=== PATIENT | female | born 1935 | race Caucasian/White ===

== ENCOUNTER 2017-12-08 07:27 | Outpatient (CLI) | payer MEDICARE ==
--- NOTE | 2017-12-08 09:37 | NM ---
NUCLEAR MEDICINE LIVER SPLEEN SCAN: Date: 12/08/17 HISTORY: Thrombocytopenia, unspecified. RADIOPHARMACEUTICAL: 5.2 mCi technetium-99m sulfur colloid injected intravenously. FINDINGS: The liver and spleen demonstrate homogeneous tracer distribution without focal mass. Faint uptake is seen in the bone marrow. No colloid shift is identified. The liver measures 21.2 cm in length and the spleen measures 13.4 cm in length. IMPRESSION: 1. Hepatomegaly. 2. Borderline splenomegaly. POS: C
== END 2017-12-08 07:28 | disposition home or self-care (01) ==
LOC: NM 07:27
PROVIDERS: ATTEND Internal Medicine
DX: D69.6 Thrombocytopenia, unspecified (principal); R16.0 Hepatomegaly, not elsewhere classified
CPT/HCPCS: 78215; A9541

== ENCOUNTER 2018-09-05 19:31 | Emergency (ER) | payer MEDICARE ==
--- NOTE | 2018-09-05 20:36 | RAD ---
RIGHT LEG TWO VIEWS: 09/05/18 HISTORY: Fall. Right leg pain. FINDINGS/IMPRESSION: Right tibia and fibula are intact. POS: [facility]
[2018-09-05] MEDS ORDERED: Lidocaine 1% w/Epinephrine 1:100K 20 ML VIAL ONE (21:26)
[2018-09-05] MEDS ORDERED: Acetaminophen 500 MG TAB ONE (22:25)
[2018-09-05] MEDS ORDERED: Adacel (T-DAP) 0.5 ML SYRINGE ONE (22:25)
== END 2018-09-05 21:45 | disposition home or self-care (01) ==
LOC: ERS 19:31
DX: S81.801A Unspecified open wound, right lower leg, initial encounter (principal); F41.9 Anxiety disorder, unspecified; I10 Essential (primary) hypertension; E11.9 Type 2 diabetes mellitus without complications; Z79.899 Other long term (current) drug therapy; Z79.82 Long term (current) use of aspirin; W17.89XA Other fall from one level to another, initial encounter
CPT/HCPCS: 12002; 90471; 90715; J2001

== ENCOUNTER 2018-09-21 12:30 | Inpatient (IN) | payer MEDICARE ==
[2018-09-21 13:13] LABS: #Eosinphils 0.1 thou/uL (0.0-0.7); #Lymphocytes 0.7 thou/uL (1.20-3.40); #Monocytes 0.5 thou/uL (0.11-0.59); #Neutrophils 5.3 thou/uL (1.40-6.50); %Basophils 0.6 % (0.0-1.0); %Eosinophils 1.2 % (0.0-10.0); %Lymphocytes 10.6 % (21.0-51.0); %Monocytes 8.1 % (0.0-10.0); %Neutrophils 79.5 % (42.0-75.0); Hemoglobin 10.7 g/dL (12.0-16.0); Mean Corpuscular HGB CONC 31.8 g/dL (32.0-36.0); Mean Corpuscular Hemoglobin 28.9 pg (27.0-31.0); Mean Corpuscular Volume 90.9 fL (78.0-98.0); Mean Platelet Volume 8.4 fL (7.4-10.4); Platelet Count 145 thou/uL (130-400); RBC Distribution Width 13.8 % (11.5-14.5); Red Blood Cell (RBC) Count 3.71 mill/uL (4.20-5.40); White Blood Cell (WBC) Count 6.6 thou/uL (4.8-10.8)
[2018-09-21 13:32] LABS: ALT (SGPT) 69 U/L (8-55); AST (SGOT) 105 U/L (5-34); Albumin 3.8 g/dL (3.4-4.8); Alkaline Phosphatase 86 U/L (40-150); Anion Gap 16 mmol/L (10-20); BUN (Urea Nitrogen) 20 mg/dL (9.8-20.1); Bilirubin, Total 0.5 mg/dL (0.2-1.2); Calc. Creatinine Clearance 0 mL/min (70-130); Calcium 11.1 mg/dL (7.8-10.44); Carbon Dioxide 22 mmol/L (23-31); Chloride 96 mmol/L (98-107); Estimated GFR-MDRD 33; Globulin 3.1 g/dL (2.4-3.5); Glucose 117 mg/dL (83-110); Protein, Total 6.9 g/dL (6.0-8.3); Sodium 130 mmol/L (136-145)
--- NOTE | 2018-09-21 15:33 | ULT ---
RIGHT LOWER EXTREMITY VENOUS DOPPLER WITH SPECTRAL ANALYSIS AND COLOR FLOW EVALUATION: 09/21/18 HISTORY: Right lower extremity edema and pain. Right calf wound. FINDINGS: Garzon scale, color flow, Doppler evaluation, with spectral analysis of the right lower extremity venou s structures is performed with 2D imaging. The right lower extremity common femoral, superficial femo ral, popliteal, posterior tibial, proximal greater saphenous and profunda femoral veins are imaged. There is normal lumen compressibility, flow, and augmentation of the visualized deep venous structure s of the right lower extremity. IMPRESSION: No evidence of a DVT involving the visualized deep venous structures right lower extremity. POS: [facility]
[2018-09-21 17:21] VITALS: BMI 26.4
[2018-09-21] MEDS ORDERED: Acetaminophen 325 MG TAB PO PRN (17:41)
[2018-09-21] MEDS ORDERED: Ondansetron ODT 4 MG TAB SL PRN (17:41)
[2018-09-21] MEDS ORDERED: Ondansetron PF 4 MG/2 ML Vial IVP PRN (17:41)
[2018-09-21 17:55] LABS: Lactic Acid 2.9 mmol/L (0.5-2.2)
[2018-09-21] MEDS ORDERED: Dextrose 5% in Water 1,000 ML IV PRN (17:57)
[2018-09-21] MEDS ORDERED: Dextrose 50% Abboject 50 ML SYRINGE SLOW IVP PRN (17:57)
[2018-09-21] MEDS ORDERED: HumaLOG 300 UNITS/3 ML VIAL SC PRN (17:57)
[2018-09-21] MEDS: Sodium Chloride 0.45% 1,000 ML IV SCH (18:40)
[2018-09-21] MEDS: Zolpidem Tartrate 5 MG TAB PO SCH (20:54)
[2018-09-21] MEDS: Mirtazapine 30 MG TAB PO SCH (20:54)
[2018-09-21] MEDS: Rosuvastatin 10 MG TAB PO SCH (20:54)
[2018-09-21] MEDS: Clindamycin/D5W 900 MG in Premix Bag 1 BAG IVPB SCH (20:54)
[2018-09-21] MEDS: cloNIDine 0.1 MG TAB PO SCH (20:55)
[2018-09-21] MEDS: Acetaminophen/Codeine 30-300mg Tablet PO PRN (21:01)
--- NOTE | 2018-09-21 22:52 | HP ---
CHIEF COMPLAINT: Right leg infection. HISTORY OF PRESENT ILLNESS: This patient is an 82-year-old female who had a fall on 09/05/2018, was seen here in the emergency department. The patient reports she was walking in her yard and essentially using her rolling walker, tripped over some tree roots and fell backwards and hit her leg on the walker itself causing some lacerations to the anterior right calf. The patient had some suturing performed here at the hospital emergency department and was subsequently discharged on p.o. clindamycin and Tylenol with Codeine. The patient subsequently saw Dr. Immanuel Figueroa in the followup and there was some concern regarding infection. She apparently had some changes made in her antibiotics on Monday. She reports at that time she was feeling fairly weak. Today, she was supposed to have a followup, but she reports that she was so profoundly weak that she did not feel like she could even get to the appointment, so she decided to come here to the emergency department instead. She denies any fevers or chills, but says she is just significantly weak. REVIEW OF SYSTEMS: Notable for no bowel movement for the last couple of days, although she has been passing some gas and has no specific abdominal pain. Otherwise, all systems reviewed. All pertinent positives and negatives noted in the history of present illness. PAST MEDICAL HISTORY: Notable for hypertension, coronary artery disease, hyperlipidemia, type 2 diabetes. PAST SURGICAL HISTORY: Complete hysterectomy, mastectomy for breast cancer. The patient had a carotid endarterectomy. FAMILY HISTORY: She has a brother who had coronary artery disease and stroke. SOCIAL HISTORY: The patient has been for about 15 years. She is a nonsmoker, nondrinker, and nondrug user. She lives alone and her son lives next door. She is a full code. ALLERGIES: PENICILLIN AND SULFA. HOME MEDICATIONS: 1. Metformin 1 p.o. b.i.d. 2. Remeron 30 mg at bedtime. 3. Crestor 1 p.o. q.p.m. 4. Ambien 1 p.o. at bedtime. 5. Catapres 0.1 mg one p.o. daily, two p.o. at bedtime. 6. Aspirin 81 mg daily. 7. Vitamin D 1000 units daily. 8. Xanax 0.25 mg at bedtime p.r.n. 9. Lactobacillus one p.o. daily. 10. Clindamycin 150 mg q.6 hours. 11. Tylenol with Codeine q.6 hours p.r.n. PHYSICAL EXAMINATION: VITAL SIGNS: Temperature 97.8, pulse 88, respirations 18, O2 saturation 97% on room air, BP is 156/80. GENERAL APPEARANCE: Age-appropriate female. She is awake, alert, oriented, pleasant, cooperative, in no distress. HEENT: PERRL. No OP lesions. NECK: Supple and symmetric. No lymphadenopathy, JVD, or carotid bruits. HEART: Regular rate and rhythm without murmurs, gallops, or rubs. LUNGS: Clear to auscultation bilaterally with good chest wall expansion and air exchange. ABDOMEN: Soft, nontender, and nondistended. Positive bowel sounds. No masses. No organomegaly. EXTREMITIES: Right lower extremity has scabbed lesions in the anterior right calf area that are about 4 cm in size, one above the other. She has halo of erythema surrounding these lesions extending from the foot all the way up near the knee. There is a line that was demarcated on Monday and it appears that they are pretty consistent with that same marking. It is blanching and warm to touch. Pulses are present, but diminished. LABORATORY DATA: White count 6.6, hemoglobin 10.7, platelets 145. Sodium 130, potassium 4.0, chloride 96, CO2 is 22, BUN 20, creatinine 1.51, glucose 117, calcium 11.1. Lactic acid was 2.9, repeat 2.9. AST is 105, ALT is 69. Troponin 0.017. BNP 216.5, albumin 3.8. Lower extremity Doppler shows no evidence of deep venous thrombosis. IMPRESSION AND PLAN: 1. Cellulitis of the right lower extremity following prior laceration wounds. We will keep her on vancomycin and given that she is allergic to penicillin, we will continue with the clindamycin, although we will be able to give her much higher doses to the IV when she was able to take p.o. We will ask Wound Care to see the patient. She still has some sutures that need to be removed and the scabs need to be cleaned up a bit. There was a Steri-Strips across the lower one which was fairly wide. I removed it and there is some slightly purulent liquid below that. We will keep covered with nonadherent gauze in the meantime. The patient does not appear to be septic, although her lactic acid is slightly elevated. We will continue to monitor that. 2. Hyponatremia. The patient has a long history of hyponatremia going back to 2016 and in fact this is the highest number she has had since that time. 3. Acute kidney injury. The patient has normal creatinine back in 2016, have no number since then, but certainly the creatinine is significantly higher. Her GFR right now is 33, on November of 2015, it was around 60. We will give gentle hydration and reassess. 4. Hypercalcemia. The patient had hypercalcemia in November of 2015 that appeared to be resolved with some hydration. We will continue to monitor that. 5. Elevated liver enzymes, unclear etiology. These were not elevated in the past, represent a new finding. She does not have any tenderness or abdominal complaints. We will need to recheck these in followup if they continue to stay elevated. 6. Diabetes mellitus. We will continue with the patient's metformin, a diabetic diet, serial Accu-Cheks, and sliding scale insulin as needed. 7. Hypertension. Continue with the lisinopril and clonidine. 8. Hyperlipidemia. Continue with the Crestor. Job ID: [id number]
[2018-09-22] MEDS: Clindamycin/D5W 900 MG in Premix Bag 1 BAG IVPB SCH ×3 (05:12→21:58)
[2018-09-22 06:56] LABS: ALT (SGPT) 48 U/L (8-55); AST (SGOT) 69 U/L (5-34); Albumin 3.1 g/dL (3.4-4.8); Alkaline Phosphatase 66 U/L (40-150); Anion Gap 11 mmol/L (10-20); BUN (Urea Nitrogen) 15 mg/dL (9.8-20.1); Bilirubin, Total 0.3 mg/dL (0.2-1.2); Calc. Creatinine Clearance 41 mL/min (70-130); Calcium 9.8 mg/dL (7.8-10.44); Carbon Dioxide 24 mmol/L (23-31); Chloride 97 mmol/L (98-107); Estimated GFR-MDRD 48; Globulin 2.5 g/dL (2.4-3.5); Glucose 95 mg/dL (83-110); Potassium 3.7 mmol/L (3.5-5.1); Protein, Total 5.6 g/dL (6.0-8.3); Sodium 128 mmol/L (136-145)
[2018-09-22] MEDS: cloNIDine 0.1 MG TAB PO SCH ×2 (07:44→20:24)
[2018-09-22] MEDS: Sodium Chloride 0.45% 1,000 ML IV SCH ×2 (07:44→20:23)
[2018-09-22] MEDS: metFORMIN XR 500 MG TAB PO SCH ×2 (07:45→16:39)
[2018-09-22] MEDS: Enoxaparin Sodium 30 MG/0.3 ML SYRINGE SC SCH (07:45)
[2018-09-22] MEDS: Aspirin 81 mg Enteric Coated Tablet PO SCH (07:45)
[2018-09-22] MEDS: Lisinopril 10 MG TAB PO SCH (07:45)
[2018-09-22] MEDS: Acetaminophen/Codeine 30-300mg Tablet PO PRN ×2 (07:47→16:41)
[2018-09-22 07:57] LABS: #Eosinphils 0.1 thou/uL (0.0-0.7); #Monocytes 0.5 thou/uL (0.11-0.59); #Neutrophils 2.4 thou/uL (1.40-6.50); %Basophils 0.4 % (0.0-1.0); %Eosinophils 3.1 % (0.0-10.0); %Lymphocytes 24.5 % (21.0-51.0); %Monocytes 11.3 % (0.0-10.0); %Neutrophils 60.7 % (42.0-75.0); Hemoglobin 9.2 g/dL (12.0-16.0); Mean Corpuscular HGB CONC 31.6 g/dL (32.0-36.0); Mean Corpuscular Hemoglobin 29.5 pg (27.0-31.0); Mean Corpuscular Volume 93.2 fL (78.0-98.0); Mean Platelet Volume 8.3 fL (7.4-10.4); Platelet Count 108 thou/uL (130-400); Platelet Morphology Comment Appears Decreased; RBC Distribution Width 13.6 % (11.5-14.5); Red Blood Cell (RBC) Count 3.12 mill/uL (4.20-5.40)
[2018-09-22 07:59] LABS: MDiff Complete? YES
[2018-09-22] MEDS: Vancomycin HCl 1 GM in Premix Bag 1 BAG IVPB SCH (12:55)
[2018-09-22] MEDS ORDERED: Bisacodyl 5 MG TAB PO PRN (13:07)
--- NOTE | 2018-09-22 20:20 | PDOC.PN ---
- Subjective Encounter Start Date: 09/22/18 Encounter Start Time: 12:30 Feels a little better. Thinks her leg is a little better. Would like a suppository for constipation. No bad yet. She is drinking glucerna's she had her daughter bring. Not much appetite for solid foods. - Objective Resuscitation Status - Order Detail: 09/21/18 17:52 Resuscitation Status Routine Resuscitation Status: FULL: Full Resuscitation Vital Signs & Weight: Vital Signs (12 hours) Temp Pulse Pulse Resp BP BP Pulse Ox 09/22/18 19:48 98.5 F 80 16 150/75 H 97 09/22/18 16:00 98.6 F 71 18 123/69 95 09/22/18 13:40 71 132/70 09/22/18 13:33 98.8 F 72 16 108/64 95 Pulse Ox 09/22/18 19:48 09/22/18 16:00 09/22/18 13:40 97 09/22/18 13:33 Weight Admit Weight 144 lb 3.2 oz Weight 144 lb 3.2 oz I&O: 09/21/18 09/22/18 09/23/18 06:59 06:59 06:59 Intake Total 720 Output Total 1 Balance -1 720 Result Diagrams: 09/22/18 05:57 09/22/18 05:57 Additional Labs: Accuchecks 09/22/18 09/22/18 11:39 05:00 POC Glucose 107 95 Phys Exam - Physical Examination Constitutional: NAD Respiratory: no wheezing, no rales, no rhonchi, clear to auscultation bilateral Cardiovascular: RRR, no rub II/ M LUSB Gastrointestinal: soft, non-tender, no distention Mild edema B calves. Right calf erythema is improved slightly. Less warm Scabbed lesions. Neurological: non-focal Psychiatric: normal affect Dx/Plan (1) Cellulitis of right anterior lower leg Code(s): L03.115 - CELLULITIS OF RIGHT LOWER LIMB Status: Acute (2) Diabetes 1.5, managed as type 2 Code(s): E13.9 - OTHER SPECIFIED DIABETES MELLITUS WITHOUT COMPLICATIONS Status: Chronic (3) HTN (hypertension) Code(s): I10 - ESSENTIAL (PRIMARY) HYPERTENSION Status: Chronic (4) Hypercholesteremia Code(s): E78.0 - PURE HYPERCHOLESTEROLEMIA * DO NOT USE * Status: Chronic - Plan * Continue IV abx at least one more day. * She appears to be improving, but fililed outpatient therapy prior to admission. * Wound care consult. * Give stool softeners and suppositories for laxatives. * Order glucerna supplements.
[2018-09-22] MEDS: Rosuvastatin 10 MG TAB PO SCH (20:24)
[2018-09-22] MEDS: Senokot S 8.6-50 MG TAB PO SCH (20:25)
[2018-09-22] MEDS: Mirtazapine 30 MG TAB PO SCH (20:25)
[2018-09-22] MEDS: ALPRAZolam 0.25 MG TAB PO PRN (21:58)
[2018-09-22] MEDS: Zolpidem Tartrate 5 MG TAB PO SCH (21:58)
[2018-09-23] MEDS: Clindamycin/D5W 900 MG in Premix Bag 1 BAG IVPB SCH ×3 (05:26→21:38)
[2018-09-23] MEDS: Enoxaparin Sodium 30 MG/0.3 ML SYRINGE SC SCH (07:58)
[2018-09-23] MEDS: cloNIDine 0.1 MG TAB PO SCH ×2 (07:58→21:38)
[2018-09-23] MEDS: metFORMIN XR 500 MG TAB PO SCH ×2 (07:58→16:44)
[2018-09-23] MEDS: Aspirin 81 mg Enteric Coated Tablet PO SCH (07:59)
[2018-09-23] MEDS: Lisinopril 10 MG TAB PO SCH (07:59)
[2018-09-23] MEDS: Senokot S 8.6-50 MG TAB PO SCH ×2 (07:59→21:38)
[2018-09-23] MEDS: Sodium Chloride 0.45% 1,000 ML IV SCH ×2 (09:35→21:39)
[2018-09-23 12:29] LABS: Vancomycin, Trough 14.1 ug/mL
--- NOTE | 2018-09-23 12:31 | PDOC.PN ---
- Subjective Encounter Start Date: 09/23/18 Encounter Start Time: 12:29 Patient seen and examined, no new issues or complaints, all questions answered. - Objective Resuscitation Status - Order Detail: 09/21/18 17:52 Resuscitation Status Routine Resuscitation Status: FULL: Full Resuscitation Vital Signs & Weight: Vital Signs (12 hours) Temp Pulse Resp BP BP Pulse Ox 09/23/18 08:00 97 09/23/18 07:59 150/75 H 09/23/18 07:58 150/75 H 09/23/18 07:46 98.5 F 80 18 145/73 H 94 L Weight Admit Weight 144 lb 3.2 oz Weight 144 lb 3.2 oz I&O: 09/22/18 09/23/18 09/24/18 06:59 06:59 06:59 Intake Total 1492 240 Output Total 1 Balance -1 1492 240 Result Diagrams: 09/22/18 05:57 09/22/18 05:57 Additional Labs: Accuchecks 09/23/18 09/23/18 09/22/18 11:10 04:57 19:34 POC Glucose 110 89 106 09/22/18 17:15 POC Glucose 128 H Phys Exam - Physical Examination Constitutional: NAD HEENT: PERRLA, moist MMs, sclera anicteric Neck: no nodes, no JVD, supple Respiratory: no wheezing, no rales, no rhonchi Cardiovascular: RRR, no significant murmur, no rub Gastrointestinal: soft, non-tender, no distention Musculoskeletal: pulses present, edema present (trace) RLE wound noted Dx/Plan (1) Cellulitis of right anterior lower leg Code(s): L03.115 - CELLULITIS OF RIGHT LOWER LIMB Status: Acute (2) Anemia Code(s): D64.9 - ANEMIA, UNSPECIFIED Status: Chronic (3) Diabetes 1.5, managed as type 2 Code(s): E13.9 - OTHER SPECIFIED DIABETES MELLITUS WITHOUT COMPLICATIONS Status: Chronic (4) HTN (hypertension) Code(s): I10 - ESSENTIAL (PRIMARY) HYPERTENSION Status: Chronic (5) Hypercholesteremia Code(s): E78.0 - PURE HYPERCHOLESTEROLEMIA * DO NOT USE * Status: Chronic - Plan * cont abx * cont with wound care * labs in AM * possible DC plans in 24-48 depending on cultures and if patient does well and labs stable
[2018-09-23] MEDS: Vancomycin HCl 1 GM in Premix Bag 1 BAG IVPB SCH (12:41)
[2018-09-23] MEDS: Rosuvastatin 10 MG TAB PO SCH (21:38)
[2018-09-23] MEDS: Mirtazapine 30 MG TAB PO SCH (21:38)
[2018-09-23] MEDS: Zolpidem Tartrate 5 MG TAB PO SCH (21:38)
[2018-09-23] MEDS: ALPRAZolam 0.25 MG TAB PO PRN (21:38)
[2018-09-24] MEDS: Clindamycin/D5W 900 MG in Premix Bag 1 BAG IVPB SCH ×3 (05:25→21:45)
[2018-09-24] MEDS: metFORMIN XR 500 MG TAB PO SCH ×2 (08:36→17:29)
[2018-09-24] MEDS: cloNIDine 0.1 MG TAB PO SCH ×2 (08:37→21:46)
[2018-09-24] MEDS: Aspirin 81 mg Enteric Coated Tablet PO SCH (08:37)
[2018-09-24] MEDS: Lisinopril 10 MG TAB PO SCH (08:37)
[2018-09-24] MEDS: Enoxaparin Sodium 30 MG/0.3 ML SYRINGE SC SCH (08:38)
[2018-09-24] MEDS: Senokot S 8.6-50 MG TAB PO SCH ×2 (08:39→19:54)
[2018-09-24] MEDS: Bisacodyl 10 MG SUPP PR PRN (09:35)
[2018-09-24 09:55] LABS: #Eosinphils 0.1 thou/uL (0.0-0.7); #Lymphocytes 0.5 thou/uL (1.20-3.40); #Monocytes 0.5 thou/uL (0.11-0.59); #Neutrophils 4.2 thou/uL (1.40-6.50); %Basophils 0.6 % (0.0-1.0); %Eosinophils 1.6 % (0.0-10.0); %Lymphocytes 9.4 % (21.0-51.0); %Monocytes 9.4 % (0.0-10.0); %Neutrophils 79.1 % (42.0-75.0); Hemoglobin 10.1 g/dL (12.0-16.0); Mean Corpuscular HGB CONC 32.6 g/dL (32.0-36.0); Mean Corpuscular Hemoglobin 29.6 pg (27.0-31.0); Mean Corpuscular Volume 90.6 fL (78.0-98.0); Mean Platelet Volume 8.4 fL (7.4-10.4); Platelet Count 97 thou/uL (130-400); RBC Distribution Width 13.7 % (11.5-14.5); Red Blood Cell (RBC) Count 3.41 mill/uL (4.20-5.40); White Blood Cell (WBC) Count 5.3 thou/uL (4.8-10.8)
[2018-09-24 10:07] LABS: Anion Gap 10 mmol/L (10-20); BUN (Urea Nitrogen) 10 mg/dL (9.8-20.1); Calc. Creatinine Clearance 52 mL/min (70-130); Calcium 9.5 mg/dL (7.8-10.44); Carbon Dioxide 23 mmol/L (23-31); Chloride 99 mmol/L (98-107); Estimated GFR-MDRD 63; Glucose 124 mg/dL (83-110); Potassium 3.9 mmol/L (3.5-5.1); Sodium 128 mmol/L (136-145)
[2018-09-24] MEDS: Vancomycin HCl 1 GM in Premix Bag 1 BAG IVPB SCH (13:06)
--- NOTE | 2018-09-24 13:06 | PDOC.PN ---
- Subjective Encounter Start Date: 09/24/18 Encounter Start Time: 13:04 Patient seen and examined, no new issues or complaints, all questions answered. - Objective Resuscitation Status - Order Detail: 09/21/18 17:52 Resuscitation Status Routine Resuscitation Status: FULL: Full Resuscitation Vital Signs & Weight: Vital Signs (12 hours) Temp Pulse Resp BP BP Pulse Ox 09/24/18 08:37 153/76 H 09/24/18 07:46 99.7 F H 79 18 153/76 H 96 Weight Admit Weight 144 lb 3.2 oz Weight 144 lb 3.2 oz I&O: 09/23/18 09/24/18 09/25/18 06:59 06:59 06:59 Intake Total 1492 1628 Balance 1492 1628 Result Diagrams: 09/24/18 09:33 09/24/18 09:33 Additional Labs: Accuchecks 09/24/18 09/23/18 09/23/18 05:25 19:34 16:10 POC Glucose 112 H 128 H 135 H Phys Exam - Physical Examination Constitutional: NAD HEENT: PERRLA, moist MMs, sclera anicteric Neck: no nodes, no JVD, supple Respiratory: no wheezing, no rales, no rhonchi Cardiovascular: RRR, no significant murmur, no rub Gastrointestinal: soft, non-tender, no distention Musculoskeletal: no edema, pulses present RLE in bandage Dx/Plan (1) Cellulitis of right anterior lower leg Code(s): L03.115 - CELLULITIS OF RIGHT LOWER LIMB Status: Acute (2) Anemia Code(s): D64.9 - ANEMIA, UNSPECIFIED Status: Chronic (3) Diabetes 1.5, managed as type 2 Code(s): E13.9 - OTHER SPECIFIED DIABETES MELLITUS WITHOUT COMPLICATIONS Status: Chronic (4) HTN (hypertension) Code(s): I10 - ESSENTIAL (PRIMARY) HYPERTENSION Status: Chronic (5) Hypercholesteremia Code(s): E78.0 - PURE HYPERCHOLESTEROLEMIA * DO NOT USE * Status: Chronic - Plan * cont wound care * requesting something for BM, will give enema * DC plans in AM to home with [facility] * case and plan d/w patient at length, she understood and agreed with this plan.
[2018-09-24] MEDS: Sodium Chloride 0.45% 1,000 ML IV SCH ×2 (13:07→19:50)
[2018-09-24] MEDS ORDERED: Mineral Oil ENEMA PR SCH (13:15)
[2018-09-24] MEDS: Mirtazapine 30 MG TAB PO SCH (21:45)
[2018-09-24] MEDS: Zolpidem Tartrate 5 MG TAB PO SCH (21:45)
[2018-09-24] MEDS: Rosuvastatin 10 MG TAB PO SCH (21:46)
[2018-09-24] MEDS: ALPRAZolam 0.25 MG TAB PO PRN (21:46)
[2018-09-25] MEDS: Clindamycin/D5W 900 MG in Premix Bag 1 BAG IVPB SCH ×3 (05:36→22:46)
[2018-09-25] MEDS: metFORMIN XR 500 MG TAB PO SCH ×2 (08:46→17:49)
[2018-09-25] MEDS: cloNIDine 0.1 MG TAB PO SCH ×2 (08:47→20:14)
[2018-09-25] MEDS: Senokot S 8.6-50 MG TAB PO SCH ×2 (08:49→20:15)
[2018-09-25] MEDS: Lisinopril 10 MG TAB PO SCH (08:49)
[2018-09-25] MEDS: Aspirin 81 mg Enteric Coated Tablet PO SCH (08:49)
[2018-09-25] MEDS: Enoxaparin Sodium 30 MG/0.3 ML SYRINGE SC SCH (08:50)
[2018-09-25] MEDS: Vancomycin HCl 1 GM in Premix Bag 1 BAG IVPB SCH (12:20)
--- NOTE | 2018-09-25 12:39 | PDOC.PN ---
- Subjective Encounter Start Date: 09/25/18 Encounter Start Time: 12:38 Patient seen and examined, no new issues or complaints, no issues overnight, all questions answered. - Objective Resuscitation Status - Order Detail: 09/21/18 17:52 Resuscitation Status Routine Resuscitation Status: FULL: Full Resuscitation Vital Signs & Weight: Vital Signs (12 hours) Temp Pulse Resp BP BP Pulse Ox 09/25/18 08:49 126/74 09/25/18 08:47 126/74 09/25/18 08:00 97.8 F 78 09/25/18 07:20 97.8 F 78 20 126/74 96 Weight Admit Weight 144 lb 3.2 oz Weight 144 lb 3.2 oz I&O: 09/24/18 09/25/18 09/26/18 06:59 06:59 06:59 Intake Total 1628 2900 240 Balance 1628 2900 240 Result Diagrams: 09/24/18 09:33 09/24/18 09:33 Additional Labs: Accuchecks 09/25/18 09/25/18 09/24/18 11:04 04:05 19:40 POC Glucose 117 H 122 H 118 H 09/24/18 09/24/18 17:21 13:57 POC Glucose 121 H 185 H Phys Exam - Physical Examination Constitutional: NAD HEENT: PERRLA, moist MMs, sclera anicteric Neck: no nodes, no JVD, supple Respiratory: no wheezing, no rales, no rhonchi Cardiovascular: RRR, no significant murmur, no rub Gastrointestinal: soft, no distention Musculoskeletal: pulses present, edema present (trace) RLE in bandages Dx/Plan (1) Cellulitis of right anterior lower leg Code(s): L03.115 - CELLULITIS OF RIGHT LOWER LIMB Status: Acute (2) Anemia Code(s): D64.9 - ANEMIA, UNSPECIFIED Status: Chronic (3) Diabetes 1.5, managed as type 2 Code(s): E13.9 - OTHER SPECIFIED DIABETES MELLITUS WITHOUT COMPLICATIONS Status: Chronic (4) HTN (hypertension) Code(s): I10 - ESSENTIAL (PRIMARY) HYPERTENSION Status: Chronic (5) Hypercholesteremia Code(s): E78.0 - PURE HYPERCHOLESTEROLEMIA * DO NOT USE * Status: Chronic - Plan * cont wound care * cont current plan of care * pending placement at [facility], DC to [facility] once arrangements are made * case and plan d/w patient at length, she understood and agreed with this plan.
[2018-09-25] MEDS: Bisacodyl 10 MG SUPP PR PRN (15:08)
[2018-09-25] MEDS: Sodium Chloride 0.45% 1,000 ML IV SCH (15:30)
[2018-09-25] MEDS: Rosuvastatin 10 MG TAB PO SCH (20:15)
[2018-09-25] MEDS: Mirtazapine 30 MG TAB PO SCH (20:15)
[2018-09-25] MEDS: Zolpidem Tartrate 5 MG TAB PO SCH (23:49)
[2018-09-25] MEDS: ALPRAZolam 0.25 MG TAB PO PRN (23:50)
[2018-09-26] MEDS: Clindamycin/D5W 900 MG in Premix Bag 1 BAG IVPB SCH ×3 (05:49→21:54)
[2018-09-26] MEDS: Sodium Chloride 0.45% 1,000 ML IV SCH ×3 (05:49→23:44)
[2018-09-26] MEDS: metFORMIN XR 500 MG TAB PO SCH ×2 (08:39→17:25)
[2018-09-26] MEDS: Lisinopril 10 MG TAB PO SCH (08:40)
[2018-09-26] MEDS: cloNIDine 0.1 MG TAB PO SCH ×2 (08:40→20:34)
[2018-09-26] MEDS: Aspirin 81 mg Enteric Coated Tablet PO SCH (08:40)
[2018-09-26] MEDS: Enoxaparin Sodium 30 MG/0.3 ML SYRINGE SC SCH (08:40)
[2018-09-26] MEDS: Senokot S 8.6-50 MG TAB PO SCH ×2 (08:40→20:35)
[2018-09-26] MEDS: Vancomycin HCl 1 GM in Premix Bag 1 BAG IVPB SCH (14:08)
--- NOTE | 2018-09-26 14:23 | PDOC.PN ---
- Subjective Encounter Start Date: 09/26/18 Encounter Start Time: 14:22 Patient seen and examined, no new issues or complaints, all questions answered. - Objective Resuscitation Status - Order Detail: 09/21/18 17:52 Resuscitation Status Routine Resuscitation Status: FULL: Full Resuscitation Vital Signs & Weight: Vital Signs (12 hours) Temp Pulse Resp BP BP BP Pulse Ox 09/26/18 08:40 147/73 H 09/26/18 07:57 98.2 F 85 16 147/73 H 96 09/26/18 04:02 98.4 F 86 20 123/70 92 L Weight Admit Weight 144 lb 3.2 oz Weight 144 lb 3.2 oz I&O: 09/25/18 09/26/18 09/27/18 06:59 06:59 06:59 Intake Total 2900 3450 480 Balance 2900 3450 480 Result Diagrams: 09/24/18 09:33 09/24/18 09:33 Additional Labs: Accuchecks 09/26/18 09/25/18 09/25/18 04:04 19:26 16:28 POC Glucose 113 H 155 H 130 H Phys Exam - Physical Examination Constitutional: NAD HEENT: PERRLA, moist MMs, sclera anicteric Neck: no nodes, no JVD, supple Respiratory: no wheezing, no rales, no rhonchi Cardiovascular: RRR, no significant murmur, no rub Gastrointestinal: soft, non-tender, no distention, positive bowel sounds Musculoskeletal: no edema (RLE in bandages), pulses present Dx/Plan (1) Cellulitis of right anterior lower leg Code(s): L03.115 - CELLULITIS OF RIGHT LOWER LIMB Status: Acute (2) Anemia Code(s): D64.9 - ANEMIA, UNSPECIFIED Status: Chronic (3) Diabetes 1.5, managed as type 2 Code(s): E13.9 - OTHER SPECIFIED DIABETES MELLITUS WITHOUT COMPLICATIONS Status: Chronic (4) HTN (hypertension) Code(s): I10 - ESSENTIAL (PRIMARY) HYPERTENSION Status: Chronic (5) Hypercholesteremia Code(s): E78.0 - PURE HYPERCHOLESTEROLEMIA * DO NOT USE * Status: Chronic - Plan * continue current plan of care * SNF arrangements being made * wet to dry dressing changes * case and plan d/w patient and daughter Carlie via phone ([phone]) at length, they understand and agree with this plan.
[2018-09-26] MEDS: Mirtazapine 30 MG TAB PO SCH (20:34)
[2018-09-26] MEDS: Rosuvastatin 10 MG TAB PO SCH (20:35)
[2018-09-26] MEDS: ALPRAZolam 0.25 MG TAB PO PRN (23:43)
[2018-09-26] MEDS: Zolpidem Tartrate 5 MG TAB PO SCH (23:43)
[2018-09-27] MEDS: Clindamycin/D5W 900 MG in Premix Bag 1 BAG IVPB SCH (05:22)
[2018-09-27 08:23] VITALS: TEMP 98
[2018-09-27] MEDS: Lisinopril 10 MG TAB PO SCH (09:08)
[2018-09-27] MEDS: Senokot S 8.6-50 MG TAB PO SCH (09:08)
[2018-09-27] MEDS: cloNIDine 0.1 MG TAB PO SCH ×2 (09:08→09:14)
[2018-09-27] MEDS: Aspirin 81 mg Enteric Coated Tablet PO SCH (09:08)
[2018-09-27] MEDS: Enoxaparin Sodium 30 MG/0.3 ML SYRINGE SC SCH (09:09)
[2018-09-27] MEDS: metFORMIN XR 500 MG TAB PO SCH (09:09)
[2018-09-27 09:16] VITALS: BP 155/70
--- NOTE | 2018-09-27 11:16 | PDOC.EVN ---
Event Note - Event Note Event Note: DC SUMMARY #[id number]
[2018-09-27] MEDS: Vancomycin HCl 1 GM in Premix Bag 1 BAG IVPB SCH (13:00)
--- NOTE | 2018-09-28 01:09 | DIS ---
DATE OF ADMISSION: 09/21/2018 DATE OF DISCHARGE: 09/27/2018 ADMITTING DIAGNOSES: Right leg infection, hypertension, coronary artery disease, hyperlipidemia, diabetes mellitus type 2. DISCHARGE DIAGNOSES: Right leg infection, stable, resolving. Hypertension, coronary artery disease, hyperlipidemia, type 2 diabetes mellitus. HOSPITAL COURSE: This is an 82-year-old female, who was admitted to the hospital due to right lower extremity cellulitis and wound infection. The patient was admitted to the Internal Medicine team. Started on dual antibiotics of vancomycin and clindamycin and also had blood cultures done. The patient was observed for 5 days with negative blood cultures. The patient also had normal white count ranging from 4 to 6 throughout her length of stay. The patient did not have any fevers. Wound care was provided for the patient with dressing changes being done and cleaning being done by Wound Care team. The patient at point in time of discharge started to have resolution of her cellulitis, erythema rather around the wound as well as reduction in the size of the wound. The patient was advised to get dressing changes every 24 hours. Physical therapy evaluation performed, arrangements for SNF made. Family wanted the patient to go to [facility]. Arrangements were made by Case Management. The patient was to follow up with [facility] for further therapy care, wound care, dressing changes every 24 hours. I advised to continue the Cleocin that she was already on. She had finished 7 days of vancomycin and thus further coverage was not needed, just advised to finish the Cleocin that she was already taking. The patient's condition at time of discharge was stable. No complaints or issues. Call placed to the patient's daughter, Arline by phone. She was updated on the plan. She agreed with the plan. DISPOSITION: SNF. FOLLOWUP: Follow up with PCP within 2 to 3 weeks. ACTIVITY: As tolerated with assistance as needed. DIET: Low-fat, low-calorie, high-fiber diet. CONDITION: Stable. PROGNOSIS: Good. MEDICATIONS: See MAR. Once again case and plan discussed with the patient and daughter via phone at length. They understand and agree with this plan. Job ID: [id number]
--- NOTE | 2018-09-28 06:04 | PQF ---
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 Clinical indicators are provided on the bottom of this form for your review Can you please further specifty if Cellulitis is due to a complication of laceration repair or not? Please check appropriate box(s): [ x ] Cellulitis due to complication of laceration repair [ ] Cellulitis not due to complication of laceration repair [ ] Other diagnosis please specify [ ] Unable to determine CLINICAL INDICATORS - SIGNS / SYMPTOMS / LABS H and P pg.1 09/21- Patient had some suturing performed here at the hospital emergency department and was subsequently discharged on p.o. Clindamycin and tylenol with codeine. H and P pg.2 09/21- Right lower extremity has scabbed lesion in the anterior calf area that are about 4cm in size, one above the another. H and P pg.2 09/21- Cellulitis of the right lower extremity following prior laceration wounds. H and P pg.3 09/21- she still has some sutures that need to removed and the scabs need to be cleaned up a bit. Hospitalist PN pg.1 09/22- Cellulitis of the right anterior lower leg DS pg.1 09/27/18- Right leg infection, stable, resolving RISK FACTORS Recent laceration repair- H and P pg.1 09/21 Hypertension-H and P pg.1 09/21 DM Type 2- H and P pg.1 09/21 Hyperlipidemia- H and P pg.1 09/21 TREATMENT: IV fluids- MAR Wound Care- DS pg.1 Clindamycin 150mg cap PO Q6H- MAR Vancomycin 1gm IV- MAR (This form is maintained as a part of the permanent medical record) 2014 [employer]. All Rights Reserved [email or web address] [not provided] [email or web address]
== END 2018-09-27 13:06 | DRG 863 ==
LOC: ERS 12:30 → T4-B 17:00
PROVIDERS: ADMIT Internal Medicine; ATTEND Internal Medicine
DX: T81.49XA Infection following a procedure, other surgical site, initial encounter (principal); L03.115 Cellulitis of right lower limb; E87.1 Hypo-osmolality and hyponatremia; N17.9 Acute kidney failure, unspecified; I10 Essential (primary) hypertension; F41.9 Anxiety disorder, unspecified; F32.9 Major depressive disorder, single episode, unspecified; E83.51 Hypocalcemia; R94.5 Abnormal results of liver function studies; I25.10 Atherosclerotic heart disease of native coronary artery without angina pectoris; E78.00 Pure hypercholesterolemia, unspecified; D64.9 Anemia, unspecified; E11.9 Type 2 diabetes mellitus without complications; Z88.0 Allergy status to penicillin; Z90.10 Acquired absence of unspecified breast and nipple; Z88.2 Allergy status to sulfonamides; Z79.84 Long term (current) use of oral hypoglycemic drugs; Z79.82 Long term (current) use of aspirin; Z90.710 Acquired absence of both cervix and uterus; Z79.01 Long term (current) use of anticoagulants; Z79.899 Other long term (current) drug therapy
CPT/HCPCS: 36415; 36416; 80048; 80053; 80202; 83605; 83880; 84484; 85025; 87040; 93005; 96365; 96366; J1650; J3370; J3490

== ENCOUNTER 2021-06-08 12:34 | Emergency (ER) | payer MEDICARE, OTHER ==
[2021-06-08] MEDS ORDERED: Lisinopril 10 MG TAB ONE (19:30)
[2021-06-08] MEDS ORDERED: cloNIDine 0.1 MG TAB ONE (19:30)
[2021-06-08] MEDS ORDERED: Amlodipine 5 MG TAB ONE (19:30)
== END 2021-06-08 20:40 | disposition home or self-care (01) ==
LOC: ERS 12:34
DX: S09.90XA Unspecified injury of head, initial encounter (principal); S81.811A Laceration without foreign body, right lower leg, initial encounter; W18.39XA Other fall on same level, initial encounter; I10 Essential (primary) hypertension; E11.9 Type 2 diabetes mellitus without complications; Z79.84 Long term (current) use of oral hypoglycemic drugs; Z79.899 Other long term (current) drug therapy
CPT/HCPCS: 70450

== ENCOUNTER 2022-03-01 08:05 | Inpatient (IN) | payer MEDICARE, OTHER ==
[2022-03-01 08:56] LABS: #Eosinphils 0.1 thou/uL (0.0-0.7); #Lymphocytes 1.2 thou/uL (1.20-3.40); #Neutrophils 10.7 thou/uL (1.40-6.50); %Basophils 0.3 % (0.0-1.0); %Eosinophils 0.8 % (0.0-10.0); %Lymphocytes 9.4 % (21.0-51.0); %Monocytes 7.7 % (0.0-10.0); %Neutrophils 81.7 % (42.0-75.0); Hemoglobin 15.2 g/dL (12.0-16.0); Mean Corpuscular HGB CONC 33.7 g/dL (32.0-36.0); Mean Corpuscular Hemoglobin 32.9 pg (27.0-31.0); Mean Corpuscular Volume 97.6 fL (78.0-98.0); Mean Platelet Volume 9.1 fL (7.4-10.4); Platelet Count 87 thou/uL (130-400); RBC Distribution Width 14.3 % (11.5-14.5); Red Blood Cell (RBC) Count 4.63 mill/uL (4.20-5.40); White Blood Cell (WBC) Count 13.1 thou/uL (4.8-10.8)
[2022-03-01 09:12] LABS: ALT (SGPT) 14 U/L (8-55); AST (SGOT) 28 U/L (5-34); Alkaline Phosphatase 86 U/L (40-110); Anion Gap 16 mmol/L (10-20); BUN (Urea Nitrogen) 10 mg/dL (9.8-20.1); Bilirubin, Total 1.4 mg/dL (0.2-1.2); Calc. Creatinine Clearance 0 mL/min (70-130); Calcium 10.7 mg/dL (7.8-10.44); Carbon Dioxide 24 mmol/L (23-31); Chloride 97 mmol/L (98-107); Estimated GFR 55; Glucose 134 mg/dL (83-110); Lipase 33 U/L (8-78); Magnesium 2.2 mg/dL (1.6-2.6); Potassium 3.8 mmol/L (3.5-5.1); Sodium 133 mmol/L (136-145)
[2022-03-01 10:38] LABS: Bilirubin Negative (Negative); Blood, Urine Negative (Negative); Clarity Clear (Clear); Glucose, Urine (Dipstick) Normal (Negative); Ketone, Urine Negative (Negative); Leukocyte 500 Leu/uL (Negative); Nitrite Negative (Negative); Protein, Urine (Dipstick) Negative (Neg-Trace); RBC/HPF 0-3 HPF (0-3); Squamous Epithelial 0-3 HPF (0-3); Urobilinogen Normal mg/dL (Less than 2)
[2022-03-01 10:40] LABS: Bacteria/HPF 1+ HPF (None Seen)
[2022-03-01 11:48] LABS: Lactic Acid 3.5 mmol/L (0.5-2.2)
[2022-03-01] MEDS ORDERED: metroNIDAZOLE 500 MG/100 ML BAG ONE (12:19)
[2022-03-01] MEDS ORDERED: HumaLOG 300 UNITS/3 ML VIAL SC PRN ×2 (13:34)
[2022-03-01] MEDS ORDERED: Dextrose 5% in Water 1,000 ML IV PRN (13:34)
[2022-03-01] MEDS ORDERED: Dextrose 50% Abboject 50 ML SYRINGE SLOW IVP PRN (13:34)
[2022-03-01] MEDS ORDERED: Iopamidol-370 76% 500 ML 1 ML ONE (14:05)
[2022-03-01] MEDS ORDERED: Ondansetron ODT 4 MG TAB PO PRN (14:10)
[2022-03-01] MEDS ORDERED: Senokot S 8.6-50 MG TAB PO PRN (14:10)
[2022-03-01] MEDS ORDERED: Acetaminophen 325 MG TAB PO PRN (14:10)
[2022-03-01] MEDS ORDERED: Ondansetron PF 4 MG/2 ML Vial IVP PRN (14:10)
[2022-03-01] MEDS ORDERED: Fleet Enema 133 ML BOT PR SCH (14:15)
[2022-03-01 14:53] LABS: INR-International Normal Ratio 1.4; Prothrombin Time 17.5 sec (12.0-14.7)
[2022-03-01 14:54] LABS: PTT 27.6 sec (22.9-36.1)
[2022-03-01 15:03] LABS: Magnesium 1.8 mg/dL (1.6-2.6); Phosphorus 2.6 mg/dL (2.3-4.7)
[2022-03-01 15:36] VITALS: BMI 25.4
[2022-03-01] MEDS: Sodium Chloride 0.9% 1,000 ML IV SCH (16:04)
[2022-03-01 18:11] LABS: SARS-CoV-2 NAA Rapid Test Not Detected (NotDetected)
[2022-03-01] MEDS: metroNIDAZOLE 500 MG in Premix Bag 1 BAG IVPB SCH (20:11)
[2022-03-01] MEDS: traMADol HCl 50 MG TAB PO PRN (20:19)
[2022-03-01] MEDS ORDERED: Famotidine 20 MG TAB PO SCH (21:00)
[2022-03-02] MEDS: metroNIDAZOLE 500 MG in Premix Bag 1 BAG IVPB SCH ×3 (03:17→20:04)
[2022-03-02] MEDS: Sodium Chloride 0.9% 1,000 ML IV SCH (03:18)
[2022-03-02] MEDS: traMADol HCl 50 MG TAB PO PRN ×2 (04:55→20:05)
[2022-03-02 07:00] LABS: #Eosinphils 0.1 thou/uL (0.0-0.7); #Lymphocytes 0.8 thou/uL (1.20-3.40); #Monocytes 0.9 thou/uL (0.11-0.59); #Neutrophils 6.9 thou/uL (1.40-6.50); %Eosinophils 0.9 % (0.0-10.0); %Lymphocytes 9.5 % (21.0-51.0); %Monocytes 10.7 % (0.0-10.0); %Neutrophils 78.9 % (42.0-75.0); Hemoglobin 14.8 g/dL (12.0-16.0); Mean Corpuscular HGB CONC 34.2 g/dL (32.0-36.0); Mean Corpuscular Hemoglobin 34.4 pg (27.0-31.0); Mean Platelet Volume 9.7 fL (7.4-10.4); Platelet Count 66 thou/uL (130-400); RBC Distribution Width 14.8 % (11.5-14.5); White Blood Cell (WBC) Count 8.8 thou/uL (4.8-10.8)
[2022-03-02 07:48] LABS: Anion Gap 16 mmol/L (10-20); BUN (Urea Nitrogen) 10 mg/dL (9.8-20.1); Calc. Creatinine Clearance 51 mL/min (70-130); Carbon Dioxide 15 mmol/L (23-31); Chloride 106 mmol/L (98-107); Estimated GFR 75; Glucose 116 mg/dL (83-110); Potassium 3.6 mmol/L (3.5-5.1); Sodium 133 mmol/L (136-145)
[2022-03-02] MEDS ORDERED: Polyethylene Glycol 3350 17 GM Packet PO SCH (09:00)
[2022-03-02] MEDS: Famotidine 20 MG TAB PO SCH (20:05)
[2022-03-03] MEDS: metroNIDAZOLE 500 MG in Premix Bag 1 BAG IVPB SCH ×2 (03:10→13:03)
[2022-03-03 06:53] LABS: Anion Gap 12 mmol/L (10-20); BUN (Urea Nitrogen) 10 mg/dL (9.8-20.1); Calc. Creatinine Clearance 53 mL/min (70-130); Carbon Dioxide 21 mmol/L (23-31); Chloride 106 mmol/L (98-107); Estimated GFR 80; Glucose 90 mg/dL (83-110); Sodium 136 mmol/L (136-145)
[2022-03-03 06:54] LABS: #Eosinphils 0.1 thou/uL (0.0-0.7); #Lymphocytes 1.1 thou/uL (1.20-3.40); #Monocytes 0.9 thou/uL (0.11-0.59); #Neutrophils 6.4 thou/uL (1.40-6.50); %Basophils 0.1 % (0.0-1.0); %Eosinophils 1.1 % (0.0-10.0); %Lymphocytes 12.5 % (21.0-51.0); %Monocytes 10.8 % (0.0-10.0); %Neutrophils 75.5 % (42.0-75.0); Hemoglobin 13.2 g/dL (12.0-16.0); Mean Corpuscular HGB CONC 32.1 g/dL (32.0-36.0); Mean Corpuscular Hemoglobin 31.6 pg (27.0-31.0); Mean Corpuscular Volume 98.4 fL (78.0-98.0); Mean Platelet Volume 9.2 fL (7.4-10.4); Platelet Count 69 thou/uL (130-400); RBC Distribution Width 14.6 % (11.5-14.5); White Blood Cell (WBC) Count 8.5 thou/uL (4.8-10.8)
[2022-03-03] MEDS: Potassium Chloride 20 MEQ TAB PO SCH ×3 (09:37→20:06)
[2022-03-03] MEDS ORDERED: cloNIDine 0.1 MG TAB PO SCH (17:08)
[2022-03-03] MEDS ORDERED: Amlodipine 5 MG TAB PO SCH (17:09)
[2022-03-03] MEDS ORDERED: Lisinopril 10 MG TAB PO SCH (17:15)
[2022-03-03] MEDS: Rosuvastatin 20 MG TAB PO SCH (20:02)
[2022-03-03] MEDS: ALPRAZolam 0.25 MG TAB PO SCH (20:02)
[2022-03-03] MEDS: Ciprofloxacin 500 MG TAB PO SCH (20:02)
[2022-03-03] MEDS: Famotidine 20 MG TAB PO SCH (20:02)
[2022-03-03] MEDS ORDERED: cloNIDine 0.3 MG TAB PO SCH (21:00)
[2022-03-04] MEDS: traMADol HCl 50 MG TAB PO PRN (05:08)
[2022-03-04] MEDS: Ciprofloxacin 500 MG TAB PO SCH ×2 (05:09→20:59)
[2022-03-04 05:50] LABS: #Eosinphils 0.1 thou/uL (0.0-0.7); #Lymphocytes 1.5 thou/uL (1.20-3.40); #Monocytes 0.7 thou/uL (0.11-0.59); #Neutrophils 4.7 thou/uL (1.40-6.50); %Basophils 0.2 % (0.0-1.0); %Lymphocytes 20.9 % (21.0-51.0); %Monocytes 10.2 % (0.0-10.0); %Neutrophils 66.8 % (42.0-75.0); Hemoglobin 12.6 g/dL (12.0-16.0); Mean Corpuscular HGB CONC 32.5 g/dL (32.0-36.0); Mean Corpuscular Hemoglobin 32.1 pg (27.0-31.0); Mean Corpuscular Volume 98.5 fL (78.0-98.0); Mean Platelet Volume 9.6 fL (7.4-10.4); Platelet Count 67 thou/uL (130-400); RBC Distribution Width 14.6 % (11.5-14.5); Red Blood Cell (RBC) Count 3.92 mill/uL (4.20-5.40)
[2022-03-04 06:15] LABS: Anion Gap 8 mmol/L (10-20); BUN (Urea Nitrogen) 14 mg/dL (9.8-20.1); Calc. Creatinine Clearance 46 mL/min (70-130); Calcium 9.2 mg/dL (7.8-10.44); Carbon Dioxide 21 mmol/L (23-31); Chloride 105 mmol/L (98-107); Estimated GFR 67; Glucose 115 mg/dL (83-110); Potassium 4.4 mmol/L (3.5-5.1); Sodium 130 mmol/L (136-145)
[2022-03-04] MEDS ORDERED: Lisinopril 20 MG TAB PO SCH (09:00)
[2022-03-04] MEDS: Amlodipine 5 MG TAB PO SCH (09:01)
[2022-03-04] MEDS: metFORMIN 500 MG TAB PO SCH ×2 (09:01→16:12)
[2022-03-04] MEDS: cloNIDine 0.2 MG TAB PO SCH ×2 (09:02→21:37)
[2022-03-04] MEDS: Lisinopril 10 MG TAB PO SCH ×2 (09:02→21:38)
[2022-03-04] MEDS: ALPRAZolam 0.25 MG TAB PO SCH (20:59)
[2022-03-04] MEDS: Famotidine 20 MG TAB PO SCH (20:59)
[2022-03-04] MEDS: Rosuvastatin 20 MG TAB PO SCH (20:59)
[2022-03-04] MEDS: Senokot S 8.6-50 MG TAB PO SCH (21:35)
[2022-03-05] MEDS: traMADol HCl 50 MG TAB PO PRN ×2 (00:02→20:40)
[2022-03-05] MEDS: Ciprofloxacin 500 MG TAB PO SCH ×2 (06:27→20:27)
[2022-03-05] MEDS: Senokot S 8.6-50 MG TAB PO SCH ×2 (09:04→20:27)
[2022-03-05] MEDS: Lisinopril 10 MG TAB PO SCH ×2 (09:04→20:28)
[2022-03-05] MEDS: metFORMIN 500 MG TAB PO SCH ×2 (09:04→16:10)
[2022-03-05] MEDS: Amlodipine 5 MG TAB PO SCH (09:05)
[2022-03-05] MEDS: Polyethylene Glycol 3350 17 GM Packet PO SCH (09:05)
[2022-03-05] MEDS: cloNIDine 0.2 MG TAB PO SCH ×2 (09:05→20:27)
[2022-03-05] MEDS: Famotidine 20 MG TAB PO SCH (20:27)
[2022-03-05] MEDS: ALPRAZolam 0.25 MG TAB PO SCH (20:27)
[2022-03-05] MEDS: Rosuvastatin 20 MG TAB PO SCH (20:29)
[2022-03-06] MEDS: Ciprofloxacin 500 MG TAB PO SCH ×2 (05:31→20:27)
[2022-03-06] MEDS: Senokot S 8.6-50 MG TAB PO SCH ×2 (08:44→20:28)
[2022-03-06] MEDS: metFORMIN 500 MG TAB PO SCH ×2 (08:44→16:40)
[2022-03-06] MEDS: Polyethylene Glycol 3350 17 GM Packet PO SCH (08:44)
[2022-03-06] MEDS: cloNIDine 0.2 MG TAB PO SCH ×2 (08:47→20:27)
[2022-03-06] MEDS: Amlodipine 5 MG TAB PO SCH (08:47)
[2022-03-06] MEDS: Lisinopril 10 MG TAB PO SCH ×2 (08:48→20:29)
[2022-03-06] MEDS ORDERED: Saccharomyces boulardii 250 MG CAP PO SCH (12:15)
[2022-03-06] MEDS: Rosuvastatin 20 MG TAB PO SCH (20:27)
[2022-03-06] MEDS: ALPRAZolam 0.25 MG TAB PO SCH (20:27)
[2022-03-06] MEDS: Famotidine 20 MG TAB PO SCH (20:29)
[2022-03-06] MEDS: traMADol HCl 50 MG TAB PO PRN (22:46)
[2022-03-07] MEDS: Ciprofloxacin 500 MG TAB PO SCH (05:38)
[2022-03-07] MEDS: traMADol HCl 50 MG TAB PO PRN (05:39)
[2022-03-07 08:10] VITALS: BP 117/67; TEMP 98.5
[2022-03-07] MEDS ORDERED: Saccharomyces boulardii 250 MG CAP PO SCH (09:00)
[2022-03-07] MEDS: Lisinopril 10 MG TAB PO SCH (09:13)
[2022-03-07] MEDS: Senokot S 8.6-50 MG TAB PO SCH (09:13)
[2022-03-07] MEDS: cloNIDine 0.2 MG TAB PO SCH (09:13)
[2022-03-07] MEDS: metFORMIN 500 MG TAB PO SCH (09:13)
[2022-03-07] MEDS: Amlodipine 5 MG TAB PO SCH (09:13)
[2022-03-07] MEDS: Polyethylene Glycol 3350 17 GM Packet PO SCH (09:14)
== END 2022-03-07 14:46 | DRG 872 ==
LOC: ERS 08:05 → T4-A 15:07 → OBSVTOIN 03-02 11:48
PROVIDERS: ADMIT Internal Medicine; ATTEND Internal Medicine
DX: A41.9 Sepsis, unspecified organism (principal); N30.00 Acute cystitis without hematuria; J90 Pleural effusion, not elsewhere classified; Z66 Do not resuscitate; Z20.822 Contact with and (suspected) exposure to COVID-19; E11.9 Type 2 diabetes mellitus without complications; E78.5 Hyperlipidemia, unspecified; K62.89 Other specified diseases of anus and rectum; K56.41 Fecal impaction; E78.00 Pure hypercholesterolemia, unspecified; I10 Essential (primary) hypertension; F41.9 Anxiety disorder, unspecified; F32.A Depression, unspecified; Z60.2 Problems related to living alone; K70.30 Alcoholic cirrhosis of liver without ascites; R91.1 Solitary pulmonary nodule; G47.00 Insomnia, unspecified; D69.6 Thrombocytopenia, unspecified; Z88.0 Allergy status to penicillin; Z88.2 Allergy status to sulfonamides; Z85.3 Personal history of malignant neoplasm of breast; Z79.899 Other long term (current) drug therapy; Z79.82 Long term (current) use of aspirin; Z79.84 Long term (current) use of oral hypoglycemic drugs; Z90.710 Acquired absence of both cervix and uterus; Z90.11 Acquired absence of right breast and nipple; Z98.890 Other specified postprocedural states
CPT/HCPCS: 36415; 36416; 51701; 74177; 80048; 80053; 81003; 81015; 83605; 83690; 83735; 84100; 85025; 85610; 85730; 87086; 94760; 96361; 96365; 96367; 96376; G0378; J1956; J7050; Q9967

== ENCOUNTER 2022-03-23 04:08 | Inpatient (IN) | payer MEDICARE ==
[2022-03-23] MEDS ORDERED: Ketorolac Tromethamine 30 MG/ML VIAL ONE (04:50)
[2022-03-23 06:03] LABS: Hemoglobin 12.5 g/dL (12.0-16.0); Mean Corpuscular HGB CONC 32.3 g/dL (32.0-36.0); Mean Corpuscular Hemoglobin 31.2 pg (27.0-31.0); Mean Corpuscular Volume 96.6 fl (78.0-98.0); Mean Platelet Volume 9.9 fL (7.4-10.4); Platelet Count 67 thou/uL (130-400); RBC Distribution Width 14.4 % (11.5-14.5); White Blood Cell (WBC) Count 9.1 thou/uL (4.8-10.8)
[2022-03-23 06:04] LABS: #Lymphocytes 0.6 thou/uL (1.20-3.40); #Monocytes 0.6 thou/uL (0.11-0.59); #Neutrophils 7.9 thou/uL (1.40-6.50); %Eosinophils 0.2 % (0.0-10.0); %Lymphocytes 6.7 % (21.0-51.0); %Monocytes 6.6 % (0.0-10.0); %Neutrophils 86.5 % (42.0-75.0)
[2022-03-23 06:21] LABS: ALT (SGPT) 25 U/L (8-55); AST (SGOT) 34 U/L (5-34); Albumin 3.7 g/dL (3.4-4.8); Alkaline Phosphatase 81 U/L (40-110); Anion Gap 15 mmol/L (10-20); BUN (Urea Nitrogen) 11 mg/dL (9.8-20.1); Bilirubin, Total 1.2 mg/dL (0.2-1.2); Calc. Creatinine Clearance 0 mL/min (70-130); Calcium 10.7 mg/dL (7.8-10.44); Carbon Dioxide 25 mmol/L (23-31); Chloride 101 mmol/L (98-107); Estimated GFR 75; Globulin 2.5 g/dL (2.4-3.5); Glucose 143 mg/dL (83-110); Potassium 4.5 mmol/L (3.5-5.1); Protein, Total 6.2 g/dL (5.8-8.1); Sodium 136 mmol/L (136-145)
[2022-03-23] MEDS ORDERED: Acetaminophen 325 MG TAB PO PRN (11:46)
[2022-03-23] MEDS ORDERED: Bisacodyl 5 MG TAB PO PRN (11:46)
[2022-03-23] MEDS ORDERED: Ondansetron ODT 4 MG TAB PO PRN (11:46)
[2022-03-23] MEDS ORDERED: Calcium Carbonate 500 MG ChewTAB PO PRN (11:46)
[2022-03-23] MEDS ORDERED: Ondansetron PF 4 MG/2 ML Vial IVP PRN (11:46)
[2022-03-23] MEDS ORDERED: HumaLOG 300 UNITS/3 ML VIAL SC PRN (11:52)
[2022-03-23] MEDS ORDERED: Dextrose 50% Abboject 50 ML SYRINGE SLOW IVP PRN (11:52)
[2022-03-23] MEDS ORDERED: Dextrose 5% in Water 1,000 ML IV PRN (11:52)
[2022-03-23 12:39] LABS: Troponin I 0.038 ng/mL (< 0.028)
[2022-03-23] MEDS ORDERED: hydrALAZINE 20 MG/ML VIAL SLOW IVP PRN (16:33)
[2022-03-23 16:42] LABS: Troponin I 0.036 ng/mL (< 0.028)
[2022-03-23] MEDS: metFORMIN 500 MG TAB PO SCH (17:11)
[2022-03-23 18:45] LABS: Bacteria/HPF None Seen HPF (None Seen); Bilirubin Negative (Negative); Blood, Urine Negative (Negative); Clarity Clear (Clear); Glucose, Urine (Dipstick) Normal (Negative); Ketone, Urine Negative (Negative); Leukocyte Negative Leu/uL (Negative); Nitrite Negative (Negative); Protein, Urine (Dipstick) Negative (Neg-Trace); RBC/HPF 0-3 HPF (0-3); Specific Gravity, Urine 1.007 (1.002-1.036); Squamous Epithelial None Seen HPF (0-3); Urobilinogen Normal mg/dL (Less than 2); WBC/HPF 0-3 HPF (0-3)
[2022-03-23 18:47] LABS: Urine Culture Reflex No No
[2022-03-23] MEDS: cloNIDine 0.2 MG TAB PO SCH (20:32)
[2022-03-23] MEDS: Amlodipine 5 MG TAB PO SCH (20:32)
[2022-03-23] MEDS: Rosuvastatin 20 MG TAB PO SCH (20:33)
[2022-03-23] MEDS: HYDROcodone/Acetaminophen 5/325 mg Tablet PO PRN (20:33)
[2022-03-23] MEDS: ALPRAZolam 0.25 MG TAB PO SCH (20:33)
[2022-03-23] MEDS ORDERED: Morphine 4 MG/ML VIAL SLOW IVP PRN (22:44)
[2022-03-24 04:58] LABS: ALT (SGPT) 20 U/L (8-55); AST (SGOT) 24 U/L (5-34); Albumin 3.1 g/dL (3.4-4.8); Alkaline Phosphatase 64 U/L (40-110); Anion Gap 11 mmol/L (10-20); BUN (Urea Nitrogen) 12 mg/dL (9.8-20.1); Bilirubin, Total 0.7 mg/dL (0.2-1.2); Calc. Creatinine Clearance 44 mL/min (70-130); Carbon Dioxide 27 mmol/L (23-31); Chloride 102 mmol/L (98-107); Estimated GFR 66; Globulin 2.1 g/dL (2.4-3.5); Glucose 97 mg/dL (83-110); Magnesium 1.8 mg/dL (1.6-2.6); Potassium 4.2 mmol/L (3.5-5.1); Protein, Total 5.2 g/dL (5.8-8.1); Sodium 136 mmol/L (136-145)
[2022-03-24 05:01] LABS: #Eosinphils 0.1 thou/uL (0.0-0.7); #Lymphocytes 1.5 thou/uL (1.20-3.40); #Monocytes 0.7 thou/uL (0.11-0.59); #Neutrophils 2.9 thou/uL (1.40-6.50); %Basophils 0.6 % (0.0-1.0); %Eosinophils 2.6 % (0.0-10.0); %Lymphocytes 27.9 % (21.0-51.0); %Monocytes 13.8 % (0.0-10.0); %Neutrophils 55.2 % (42.0-75.0); Hemoglobin 10.4 g/dL (12.0-16.0); Mean Corpuscular HGB CONC 32.4 g/dL (32.0-36.0); Mean Corpuscular Hemoglobin 32.1 pg (27.0-31.0); Mean Corpuscular Volume 99.2 fl (78.0-98.0); Mean Platelet Volume 9.3 fL (7.4-10.4); Platelet Count 80 thou/uL (130-400); RBC Distribution Width 14.3 % (11.5-14.5); Red Blood Cell (RBC) Count 3.24 mill/uL (4.20-5.40); White Blood Cell (WBC) Count 5.3 thou/uL (4.8-10.8)
[2022-03-24] MEDS: cloNIDine 0.2 MG TAB PO SCH ×2 (07:56→20:44)
[2022-03-24] MEDS: Enoxaparin Sodium 40 MG/0.4 ML SYRINGE SC SCH (07:56)
[2022-03-24] MEDS: metFORMIN 500 MG TAB PO SCH ×2 (07:56→17:15)
[2022-03-24] MEDS ORDERED: Lisinopril 10 MG TAB PO SCH (09:00)
[2022-03-24] MEDS: Polyethylene Glycol 3350 17 GM Packet PO PRN (11:09)
[2022-03-24] MEDS: HYDROcodone/Acetaminophen 5/325 mg Tablet PO PRN (12:11)
[2022-03-24] MEDS: ALPRAZolam 0.25 MG TAB PO SCH (20:43)
[2022-03-24] MEDS: Rosuvastatin 20 MG TAB PO SCH (20:43)
[2022-03-24] MEDS: Amlodipine 5 MG TAB PO SCH (20:44)
[2022-03-25] MEDS: HYDROcodone/Acetaminophen 5/325 mg Tablet PO PRN ×3 (00:24→19:57)
[2022-03-25] MEDS: cloNIDine 0.2 MG TAB PO SCH ×2 (08:25→19:57)
[2022-03-25] MEDS: Enoxaparin Sodium 40 MG/0.4 ML SYRINGE SC SCH (08:25)
[2022-03-25] MEDS: metFORMIN 500 MG TAB PO SCH ×2 (08:25→18:42)
[2022-03-25] MEDS: Lisinopril 10 MG TAB PO SCH (08:25)
[2022-03-25] MEDS: Polyethylene Glycol 3350 17 GM Packet PO PRN (08:26)
[2022-03-25] MEDS: Rosuvastatin 20 MG TAB PO SCH (19:56)
[2022-03-25] MEDS: ALPRAZolam 0.25 MG TAB PO SCH (19:56)
[2022-03-25] MEDS: Amlodipine 5 MG TAB PO SCH (19:56)
[2022-03-26] MEDS: metFORMIN 500 MG TAB PO SCH ×2 (08:22→16:22)
[2022-03-26] MEDS: Enoxaparin Sodium 40 MG/0.4 ML SYRINGE SC SCH (08:22)
[2022-03-26] MEDS: Lisinopril 10 MG TAB PO SCH (08:22)
[2022-03-26] MEDS: Senokot S 8.6-50 MG TAB PO PRN (08:22)
[2022-03-26] MEDS: Polyethylene Glycol 3350 17 GM Packet PO PRN (08:22)
[2022-03-26] MEDS: cloNIDine 0.2 MG TAB PO SCH ×2 (08:22→19:58)
[2022-03-26] MEDS: HYDROcodone/Acetaminophen 5/325 mg Tablet PO PRN ×2 (10:42→19:59)
[2022-03-26] MEDS: ALPRAZolam 0.25 MG TAB PO SCH (19:58)
[2022-03-26] MEDS: Rosuvastatin 20 MG TAB PO SCH (19:58)
[2022-03-27] MEDS: HYDROcodone/Acetaminophen 5/325 mg Tablet PO PRN ×3 (04:30→16:45)
[2022-03-27] MEDS: Polyethylene Glycol 3350 17 GM Packet PO PRN (09:11)
[2022-03-27] MEDS: Lisinopril 10 MG TAB PO SCH (09:12)
[2022-03-27] MEDS: metFORMIN 500 MG TAB PO SCH ×2 (09:12→16:45)
[2022-03-27] MEDS: cloNIDine 0.2 MG TAB PO SCH (09:12)
[2022-03-27] MEDS: Enoxaparin Sodium 40 MG/0.4 ML SYRINGE SC SCH (09:17)
[2022-03-27] MEDS: Rosuvastatin 20 MG TAB PO SCH (21:08)
[2022-03-27] MEDS: ALPRAZolam 0.25 MG TAB PO SCH (21:08)
[2022-03-28] MEDS: HYDROcodone/Acetaminophen 5/325 mg Tablet PO PRN ×4 (04:14→20:57)
[2022-03-28 07:16] LABS: #Lymphocytes 0.5 thou/uL (1.20-3.40); #Monocytes 1.1 thou/uL (0.11-0.59); #Neutrophils 9.2 thou/uL (1.40-6.50); %Eosinophils 0.2 % (0.0-10.0); %Lymphocytes 4.8 % (21.0-51.0); %Monocytes 10.1 % (0.0-10.0); Hemoglobin 10.1 g/dL (12.0-16.0); Mean Corpuscular HGB CONC 31.6 g/dL (32.0-36.0); Mean Corpuscular Hemoglobin 30.2 pg (27.0-31.0); Mean Corpuscular Volume 95.6 fl (78.0-98.0); Mean Platelet Volume 9.9 fL (7.4-10.4); Platelet Count 68 thou/uL (130-400); RBC Distribution Width 13.9 % (11.5-14.5); Red Blood Cell (RBC) Count 3.36 mill/uL (4.20-5.40); White Blood Cell (WBC) Count 10.8 thou/uL (4.8-10.8)
[2022-03-28 07:30] LABS: Anion Gap 12 mmol/L (10-20); BUN (Urea Nitrogen) 16 mg/dL (9.8-20.1); Calc. Creatinine Clearance 39 mL/min (70-130); Calcium 10.2 mg/dL (7.8-10.44); Carbon Dioxide 25 mmol/L (23-31); Chloride 98 mmol/L (98-107); Estimated GFR 67; Glucose 155 mg/dL (83-110); Potassium 4.3 mmol/L (3.5-5.1); Sodium 131 mmol/L (136-145)
[2022-03-28] MEDS: Enoxaparin Sodium 40 MG/0.4 ML SYRINGE SC SCH (08:03)
[2022-03-28] MEDS: Spironolactone 25 MG TAB PO SCH (09:23)
[2022-03-28] MEDS: metFORMIN 500 MG TAB PO SCH ×2 (09:24→17:28)
[2022-03-28] MEDS: Lisinopril 10 MG TAB PO SCH (09:34)
[2022-03-28] MEDS: ALPRAZolam 0.25 MG TAB PO SCH (20:57)
[2022-03-28] MEDS: Rosuvastatin 20 MG TAB PO SCH (20:57)
[2022-03-29] MEDS: Enoxaparin Sodium 40 MG/0.4 ML SYRINGE SC SCH (07:46)
[2022-03-29] MEDS: Lisinopril 10 MG TAB PO SCH (08:36)
[2022-03-29] MEDS: metFORMIN 500 MG TAB PO SCH ×2 (08:36→18:20)
[2022-03-29] MEDS: Spironolactone 25 MG TAB PO SCH (08:36)
[2022-03-29] MEDS: HYDROcodone/Acetaminophen 5/325 mg Tablet PO PRN ×2 (08:36→20:42)
[2022-03-29] MEDS: Polyethylene Glycol 3350 17 GM Packet PO PRN (08:40)
[2022-03-29 16:01] VITALS: BMI 19.1
[2022-03-29] MEDS: Rosuvastatin 20 MG TAB PO SCH (20:42)
[2022-03-29] MEDS: ALPRAZolam 0.25 MG TAB PO SCH (20:42)
[2022-03-30] MEDS: Lisinopril 10 MG TAB PO SCH (09:54)
[2022-03-30] MEDS: metFORMIN 500 MG TAB PO SCH ×2 (09:54→16:48)
[2022-03-30] MEDS: HYDROcodone/Acetaminophen 5/325 mg Tablet PO PRN ×2 (09:56→21:08)
[2022-03-30] MEDS: Spironolactone 25 MG TAB PO SCH (09:56)
[2022-03-30] MEDS: Enoxaparin Sodium 40 MG/0.4 ML SYRINGE SC SCH (09:57)
[2022-03-30] MEDS: Polyethylene Glycol 3350 17 GM Packet PO PRN (10:03)
[2022-03-30] MEDS ORDERED: Labetalol HCl 100 MG/20 ML VIAL SLOW IVP PRN (10:07)
[2022-03-30] MEDS ORDERED: hydrALAZINE 20 MG/ML VIAL SLOW IVP PRN (10:07)
[2022-03-30] MEDS: Senokot S 8.6-50 MG TAB PO PRN (16:53)
[2022-03-30] MEDS: Rosuvastatin 20 MG TAB PO SCH (21:08)
[2022-03-30] MEDS: ALPRAZolam 0.25 MG TAB PO SCH (21:08)
[2022-03-31] MEDS: Lisinopril 10 MG TAB PO SCH (09:12)
[2022-03-31] MEDS: metFORMIN 500 MG TAB PO SCH ×2 (09:14→16:31)
[2022-03-31] MEDS: Spironolactone 25 MG TAB PO SCH (09:14)
[2022-03-31] MEDS: Enoxaparin Sodium 40 MG/0.4 ML SYRINGE SC SCH (09:14)
[2022-03-31] MEDS: Polyethylene Glycol 3350 17 GM Packet PO PRN (09:14)
[2022-03-31] MEDS: HYDROcodone/Acetaminophen 5/325 mg Tablet PO PRN ×2 (10:17→16:29)
[2022-03-31] MEDS: Rosuvastatin 20 MG TAB PO SCH (19:38)
[2022-03-31] MEDS: ALPRAZolam 0.25 MG TAB PO SCH (19:38)
[2022-04-01] MEDS: Lisinopril 10 MG TAB PO SCH (08:55)
[2022-04-01] MEDS: metFORMIN 500 MG TAB PO SCH ×2 (08:55→18:09)
[2022-04-01] MEDS: Spironolactone 25 MG TAB PO SCH (08:57)
[2022-04-01] MEDS: Enoxaparin Sodium 40 MG/0.4 ML SYRINGE SC SCH (08:57)
[2022-04-01 10:13] LABS: Anion Gap 11 mmol/L (10-20); BUN (Urea Nitrogen) 15 mg/dL (9.8-20.1); Calc. Creatinine Clearance 36 mL/min (70-130); Calcium 10.2 mg/dL (7.8-10.44); Carbon Dioxide 26 mmol/L (23-31); Chloride 99 mmol/L (98-107); Estimated GFR 61; Glucose 112 mg/dL (83-110); Potassium 4.5 mmol/L (3.5-5.1); Sodium 131 mmol/L (136-145)
[2022-04-01] MEDS: Polyethylene Glycol 3350 17 GM Packet PO PRN (18:09)
[2022-04-01] MEDS: Rosuvastatin 20 MG TAB PO SCH (20:07)
[2022-04-01] MEDS: ALPRAZolam 0.25 MG TAB PO SCH (20:07)
[2022-04-02] MEDS: HYDROcodone/Acetaminophen 5/325 mg Tablet PO PRN ×3 (02:08→21:35)
[2022-04-02] MEDS: Spironolactone 25 MG TAB PO SCH (08:05)
[2022-04-02] MEDS: Lisinopril 10 MG TAB PO SCH (08:05)
[2022-04-02] MEDS: Enoxaparin Sodium 40 MG/0.4 ML SYRINGE SC SCH (08:06)
[2022-04-02] MEDS: metFORMIN 500 MG TAB PO SCH ×2 (08:06→17:13)
[2022-04-02 09:53] LABS: Hemoglobin 10.7 g/dL (12.0-16.0); Platelet Count 122 thou/uL (130-400)
[2022-04-02 10:22] LABS: Anion Gap 11 mmol/L (10-20); BUN (Urea Nitrogen) 15 mg/dL (9.8-20.1); Calc. Creatinine Clearance 37 mL/min (70-130); Calcium 10.6 mg/dL (7.8-10.44); Carbon Dioxide 24 mmol/L (23-31); Chloride 99 mmol/L (98-107); Estimated GFR 63; Glucose 113 mg/dL (83-110); Potassium 4.4 mmol/L (3.5-5.1); Sodium 130 mmol/L (136-145)
[2022-04-02] MEDS: Polyethylene Glycol 3350 17 GM Packet PO PRN (12:24)
[2022-04-02] MEDS: Senokot S 8.6-50 MG TAB PO PRN (12:24)
[2022-04-02] MEDS: ALPRAZolam 0.25 MG TAB PO SCH (20:41)
[2022-04-02] MEDS: Rosuvastatin 20 MG TAB PO SCH (20:41)
[2022-04-03] MEDS: metFORMIN 500 MG TAB PO SCH ×2 (08:05→16:44)
[2022-04-03] MEDS: Lisinopril 10 MG TAB PO SCH (08:05)
[2022-04-03] MEDS: Spironolactone 25 MG TAB PO SCH (08:06)
[2022-04-03] MEDS: Enoxaparin Sodium 40 MG/0.4 ML SYRINGE SC SCH (08:09)
[2022-04-03] MEDS: Senokot S 8.6-50 MG TAB PO PRN (08:09)
[2022-04-03] MEDS: Polyethylene Glycol 3350 17 GM Packet PO PRN (08:09)
[2022-04-03] MEDS: Rosuvastatin 20 MG TAB PO SCH (20:08)
[2022-04-03] MEDS: ALPRAZolam 0.25 MG TAB PO SCH (20:10)
[2022-04-03] MEDS: HYDROcodone/Acetaminophen 5/325 mg Tablet PO PRN (22:01)
[2022-04-04] MEDS: Lisinopril 10 MG TAB PO SCH (08:38)
[2022-04-04] MEDS: Spironolactone 25 MG TAB PO SCH (08:38)
[2022-04-04] MEDS: metFORMIN 500 MG TAB PO SCH (08:38)
[2022-04-04] MEDS: Enoxaparin Sodium 40 MG/0.4 ML SYRINGE SC SCH (08:39)
[2022-04-04] MEDS: Polyethylene Glycol 3350 17 GM Packet PO PRN (08:43)
[2022-04-04 10:00] LABS: Anion Gap 15 mmol/L (10-20); BUN (Urea Nitrogen) 16 mg/dL (9.8-20.1); Calc. Creatinine Clearance 30 mL/min (70-130); Calcium 11.1 mg/dL (7.8-10.44); Carbon Dioxide 18 mmol/L (23-31); Chloride 101 mmol/L (98-107); Estimated GFR 49; Glucose 179 mg/dL (83-110); Potassium 4.5 mmol/L (3.5-5.1); Sodium 129 mmol/L (136-145)
[2022-04-04 12:36] VITALS: BP 134/68; TEMP 98.3
[2022-04-05] MEDS ORDERED: Enoxaparin Sodium 30 MG/0.3 ML SYRINGE SC SCH (09:00)
== END 2022-04-04 13:15 | DRG 309 ==
LOC: ERS 04:08 → SUATTDRO 04:08 → 2NO 11:45 → OBSVTOIN 03-25 14:17 → T4-B 03-27 16:17
PROVIDERS: ADMIT Internal Medicine; ATTEND Family Medicine
DX: I47.20 Ventricular tachycardia, unspecified (principal); I50.32 Chronic diastolic (congestive) heart failure; L03.90 Cellulitis, unspecified; Z20.822 Contact with and (suspected) exposure to COVID-19; S80.12XA Contusion of left lower leg, initial encounter; S80.11XA Contusion of right lower leg, initial encounter; Z66 Do not resuscitate; W18.30XA Fall on same level, unspecified, initial encounter; I08.2 Rheumatic disorders of both aortic and tricuspid valves; I11.0 Hypertensive heart disease with heart failure; E11.65 Type 2 diabetes mellitus with hyperglycemia; E78.5 Hyperlipidemia, unspecified; D69.6 Thrombocytopenia, unspecified; F41.9 Anxiety disorder, unspecified; F32.A Depression, unspecified; S81.819A Laceration without foreign body, unspecified lower leg, initial encounter; M25.511 Pain in right shoulder; Z79.899 Other long term (current) drug therapy; Z79.84 Long term (current) use of oral hypoglycemic drugs; Z91.040 Latex allergy status; Z88.0 Allergy status to penicillin; Z88.2 Allergy status to sulfonamides; Z85.3 Personal history of malignant neoplasm of breast; Z90.710 Acquired absence of both cervix and uterus; Z90.11 Acquired absence of right breast and nipple
CPT/HCPCS: 36415; 36416; 70450; 71045; 80048; 80053; 81001; 83735; 83880; 84484; 85014; 85018; 85025; 85049; 87811; 93005; 93306; 93970; 96372; 96374; 97139; G0378; J0360; J1650; J1885; J2270; U0003; U0005

== ENCOUNTER 2022-04-18 08:53 | Emergency (ER) | payer MEDICARE ==
[2022-04-18] MEDS ORDERED: FENTANYL 50 MCG/ML 1 ML VIAL ONE ×2 (09:13→11:25)
[2022-04-18] MEDS ORDERED: Glycopyrrolate 0.2 MG/ML 5 ML SYRINGE SLOW IVP SCH (10:45)
== END 2022-04-18 12:29 | disposition expired ==
LOC: ERS 08:53
DX: A41.9 Sepsis, unspecified organism (principal); R65.21 Severe sepsis with septic shock; J96.90 Respiratory failure, unspecified, unspecified whether with hypoxia or hypercapnia; I10 Essential (primary) hypertension; E11.9 Type 2 diabetes mellitus without complications; E78.5 Hyperlipidemia, unspecified; Z79.84 Long term (current) use of oral hypoglycemic drugs
CPT/HCPCS: 96374; 96375; 96376; J3010